=== PATIENT | male | born 1950 | race Caucasian/White ===

== ENCOUNTER 2020-05-22 09:04 | Outpatient (CLI) | payer MEDICARE, MEDICAID, SELFPAY | END 2020-05-22 09:05 | disposition home or self-care (01) | DX: H91.93 Unspecified hearing loss, bilateral (principal) | CPT/HCPCS: 92557; 92567 ==

== ENCOUNTER 2021-02-10 09:30 | Outpatient (RCR) | payer MEDICAID, SELFPAY | END 2021-03-16 23:59 | disposition home or self-care (01) | LOC: ANHBWCAUD 09:30 | PROVIDERS: PCP Family Medicine; Visit Provider Family Medicine | DX: Z46.1 Encounter for fitting and adjustment of hearing aid (principal); H91.93 Unspecified hearing loss, bilateral | CPT/HCPCS: 99199; V5014 ==

== ENCOUNTER 2021-04-17 12:30 | Outpatient (RCR) | payer MEDICAID, SELFPAY | END 2021-06-29 23:59 | disposition home or self-care (01) | LOC: ANHBWCAUD 12:30 | PROVIDERS: PCP Family Medicine; Visit Provider Family Medicine | DX: Z46.1 Encounter for fitting and adjustment of hearing aid (principal); H91.93 Unspecified hearing loss, bilateral | CPT/HCPCS: 99199; V5160; V5261; V5264 ==

== ENCOUNTER 2021-07-24 08:02 | Outpatient (CLI) | payer MEDICARE, MEDICAID, SELFPAY | END 2021-07-24 08:03 | disposition home or self-care (01) | LOC: ANHBWCAUD 08:07 | PROVIDERS: PCP Family Medicine | DX: H90.3 Sensorineural hearing loss, bilateral (principal) | CPT/HCPCS: 92557; 92567 ==

== ENCOUNTER 2022-07-28 12:35 | Outpatient (CLI) | payer MEDICARE, MEDICAID, SELFPAY | END 2022-07-28 12:36 | disposition home or self-care (01) | LOC: ANHBWCAUD 12:36 | PROVIDERS: PCP Family Medicine; Visit Provider Family Medicine | DX: H90.3 Sensorineural hearing loss, bilateral (principal) | CPT/HCPCS: 92557; 92567 ==

== ENCOUNTER 2023-09-21 09:53 | Outpatient (CLI) | payer MEDICARE, MEDICAID, SELFPAY | END 2023-09-21 09:54 | disposition home or self-care (01) | LOC: ANHBWCAUD 09:55 | PROVIDERS: PCP Family Medicine | DX: H91.3 Deaf nonspeaking, not elsewhere classified (principal) | CPT/HCPCS: 99199 ==

== ENCOUNTER 2024-02-22 08:36 | Outpatient (CLI) | payer MEDICARE, MEDICAID, SELFPAY | END 2024-02-22 08:37 | disposition home or self-care (01) | LOC: ANHBWCAUD 08:36 | PROVIDERS: PCP Family Medicine; Visit Provider Internal Medicine Rheumatology | DX: H91.3 Deaf nonspeaking, not elsewhere classified (principal) | CPT/HCPCS: 92567 ==

== ENCOUNTER 2024-05-09 10:54 | Outpatient (CLI) | payer MEDICARE, MEDICAID, SELFPAY | END 2024-05-09 10:55 | disposition home or self-care (01) | LOC: ANHBWCAUD 10:54 | PROVIDERS: PCP Family Medicine | DX: H90.3 Sensorineural hearing loss, bilateral (principal); H61.23 Impacted cerumen, bilateral | CPT/HCPCS: 92557; 92567 ==